=== PATIENT | female | born 2000 | race Caucasian/White ===

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

== ENCOUNTER 2018-07-21 19:00 | Emergency (ER) | END 2018-07-21 21:49 | disposition home or self-care (01) ==

== ENCOUNTER 2018-11-03 10:57 | Emergency (ER) | payer BC, OTHER ==
[~2018-11-03] VITALS: Wt 78.0 kg
[~2018-11-03 10:57] MED LIST changes: +ALBU18HF INHALATION; +ALBU2.5V3 NEB; -ALBU8.5H3 INH; +ALBU8.5H8 INH; +AMOX500C2 PO; +AZIT250T PO; -AZIT250T94 PO; +FLUT9.9S NASAL; -IPRA3AMP INH; -IPRA3AMP INHALATION; +IPRA3AMP29 INH; +IPRA3AMP29 INHALATION; +NAPR-688 PO; +PRED20TA PO; +PROM6.2515 PO
[2018-11-03 10:59] VITALS: BP 123/74; PULSE 77; RESP 18
[2018-11-03] MEDS ORDERED: DOXY100T20 PO (11:15)
[2018-11-03] MEDS ORDERED: ACET500C5 PO (11:15)
--- NOTE | 2018-11-03 11:18 | ERD ---
ER Documentation Chief Complaint Chief Complaint YAMILETH BIG TOES PAIN HPI 18-year-old female presents with pain in around the bilateral big toes for the last 3 days. Started in [place]. She [place] lot on the beach but denies any history of trauma. Right toe is worse in the left toe. There is been some clear liquid emanating from underneath the nail in the right big toenail. She denies fevers, range of motion, weakness, additional symptoms. Tetanus is not up-to-date. ROS All systems reviewed and are negative except as per history of present illness. Medications Home Meds Active Scripts Doxycycline Hyclate* (Doxycycline Hyclate*) 100 Mg Tablet.dr, 100 MG PO BID for 10 Days, TAB Prov:MELISA COOK MD 11/03/18 Acetaminophen* (Tylophen*) 500 Mg Capsule, 1 CAP PO Q6H PRN for PAIN AND OR ELEVATED TEMP, #20 CAP Prov:MELISA COOK MD 11/03/18 Promethazine Hcl* (Promethazine Hcl* Syrup) 6.25 Mg/5 Ml Syrup, 6.25 MG PO Q6H PRN for COUGH, #100 ML Prov:DAVID GARCÍA PA-C 09/03/18 Albuterol Sulfate* (Proair HFA*) 8.5 Gm Hfa.aer.ad, 2 PUFF INH Q4, #1 INHALER Prov:DAVID GARCÍA PA-C 09/03/18 Albuterol Sulfate* (Albuterol Sulfate* Neb) 0.083%-3 Ml Neb, 2.5 MG NEB Q4 PRN for SHORTNESS OF BREATH, #30 EA Prov:DAVID GARCÍA PA-C 09/03/18 Albuterol Sulfate* (Albuterol Sulfate* Neb) 0.083%-3 Ml Neb, 2.5 MG NEB Q4 PRN for SHORTNESS OF BREATH, #30 EA Prov:MELISA COOK MD 07/21/18 Azithromycin* (Zithromax*) 250 Mg Tablet, 250 MG PO .ZPACK DIRECTED, #6 TAB TAKE 500 MG (2 TABS) THE FIRST DAY THEN 250 MG (1 TAB) DAYS 2-5 Prov:MELISA COOK MD 07/21/18 Prednisone* (Prednisone*) 20 Mg Tab, 60 MG PO DAILY for 5 Days, TAB 60 mg by mouth for 2 days then 40 mg by mouth for 3 days. Prov:MELISA COOK MD 07/21/18 Prednisone* (Prednisone*) 20 Mg Tab, 40 MG PO DAILY for 4 Days, TAB Prov:PETER FLORES DO 12/03/17 Albuterol Sulfate* (Ventolin HFA*) 18 Gm Hfa.aer.ad, 2 PUFF INHALATION Q6H, #1 INHALER Prov:GEOFFREY PRAKASH PA-C 10/07/17 Fluticasone Propionate (Flonase Allergy Relief) 9.9 Ml [place].susp, 2 SPRAY NASAL DAILY, #1 BOTTLE TO EACH NOSTRIL Prov:GEOFFREY PRAKASH PA-C 10/07/17 Prednisone* (Prednisone*) 20 Mg Tab, 40 MG PO DAILY for 4 Days, TAB Prov:GEOFFREY PRAKASH PA-C 10/07/17 Azithromycin* (Zithromax*) 250 Mg Tablet, 250 MG PO .ZPACK DIRECTED, #6 TAB TAKE 500 MG (2 TABS) THE FIRST DAY THEN 250 MG (1 TAB) DAYS 2-5 Prov:GEOFFREY PRAKASH PA-C 10/07/17 Albuterol Sulfate* (Albuterol Sulfate* Neb) 0.083%-3 Ml Neb, 2.5 MG NEB Q4 PRN for SHORTNESS OF BREATH, #30 EA Prov:NILE HARGROVE PA-C 08/14/17 Albuterol Sulfate* (Ventolin HFA*) 18 Gm Hfa.aer.ad, 2 PUFF INHALATION Q4H, #1 INHALER Prov:NILE HARGROVE PA-C 08/14/17 Prednisone* (Prednisone*) 20 Mg Tab, 40 MG PO DAILY for 4 Days, TAB Prov:NILE HARGROVE PA-C 08/14/17 Naproxen* (Naproxen*) 500 Mg Tablet, 500 MG PO BID PRN for PAIN, #20 TAB Prov:PETER FLORES DO 07/22/17 Prednisone (Prednisone) 20 Mg Tablet, 40 MG PO DAILY, #4 TAB Prov:PETER FLORES DO 07/22/17 Amoxicillin* (Amoxicillin*) 500 Mg Cap, 500 MG PO TID for 7 Days, CAP Prov:PETER FLORES DO 07/22/17 Xgoxxjbcwsb-W-Ehrlpchvut Hb* (Guaifenesin* DM Syrup) 120 Ml Syrup, 10 ML PO Q4H PRN for COUGH, #120 ML Prov:ALISTAIR RIVERA NP 06/27/17 Prednisone* (Prednisone*) 50 Mg Tablet, 50 MG PO DAILY for 5 Days, TAB Prov:ALISTAIR RIVERA NP 06/27/17 Ipratropium-Albuterol (Ipratropium-Albuterol) 0.5-3 Mg/3 Ml Ampul.neb, 3 ML INH Q4H PRN for SHORTNESS OF BREATH, #30 AMP Prov:ALISTAIR RIVERA NP 06/27/17 Cetirizine Hcl* (Zyrtec*) 10 Mg Capsule, 10 MG PO DAILY, #30 TAB.CHEW Prov:ALISTAIR RIVERA NP 06/27/17 Albuterol Sulfate* (Proair HFA*) 8.5 Gm Hfa.aer.ad, 2 PUFF INH Q4H PRN for WHEEZING AND SOB, #1 INHALER Prov:ALISTAIR RIVERA NP 06/27/17 Salmeterol Xinaf/Fluticasone* (Advair*) 250-50 Diskus Inhaler, 1 INH INH BID, #1 INH Prov:CORBY CONNELLY 04/25/17 Prednisone* (Prednisone*) 10 Mg Tab, 10 MG PO DAILY, #30 TAB 1. take 40mg by mouth daily for 3 days 2. then 30mg by mouth daily for 3 days 3. then 20mg by mouth daily for 3 days 4. then 10mg by mouth daily for 3 days Prov:CORBY CONNELLY 04/25/17 Albuterol Sulfate* (Proair HFA*) 8.5 Gm Hfa.aer.ad, 2 PUFF INH Q4H PRN for WHEEZING AND SOB, #1 INHALER Prov:CORBY CONNELLY 04/25/17 Azithromycin* (Zithromax*) 250 Mg Tablet, 250 MG PO .ZPACK DIRECTED, #6 TAB TAKE 500 MG (2 TABS) THE FIRST DAY THEN 250 MG (1 TAB) DAYS 2-5 Prov:CORBY CONNELLY 04/25/17 Cetirizine Hcl* (Zyrtec*) 10 Mg Capsule, 10 MG PO DAILY, #20 TAB.CHEW Prov:ABEBA ALFONSO PA-C 04/22/17 Dextromethorphan Hb-Promethazine Hcl* (Promethazine DM* Syrup) 473 Ml Syrup, 5 ML PO Q6 PRN for COUGH, #1 BOTTLE Prov:ABEBA ALFONSO PA-C 04/22/17 Ipratropium-Albuterol (Ipratropium-Albuterol) 0.5-3 Mg/3 Ml Ampul.neb, 3 ML INHALATION Q6, #30 VIAL Prov:ALISTAIR RIVERA NP 10/14/15 Cetirizine Hcl* (Zyrtec*) 10 Mg Capsule, 10 MG PO DAILY, #30 TAB.CHEW Prov:ALISTAIR RIVERA NP 09/16/15 Albuterol Sulfate* (Proventil* Neb) 0.083% Neb, 2.5 MG NEB Q4 PRN for SHORTNESS OF BREATH, #30 EA Prov:SARWAT ABERNATHYA 02/22/15 Allergies Allergies: Coded Allergies: No Known Allergy (Unverified , 09/03/18) PMhx/Soc History of Surgery: No Anesthesia Reaction: No Hx Neurological Disorder: No Hx Respiratory Disorders: Yes (ASTHMA) Hx Cardiac Disorders: No Hx Psychiatric Problems: No Hx Miscellaneous Medical Probl: No Hx Alcohol Use: No Hx Substance Use: No Hx Tobacco Use: No FmHx Family History: No diabetes, No coronary disease, No other Physical Exam Vitals Vital Signs Date Temp Pulse Resp B/P (MAP) Pulse Ox O2 O2 Flow FiO2 Time Delivery Rate 11/03/18 99.2 77 18 123/74 99 10:59 (90) Physical Exam Const: No acute distress Head: Atraumatic Eyes: Normal Conjunctiva ENT: Normal External Ears, Nose and Mouth. Neck: Full range of motion. No meningismus. Resp: Clear to auscultation bilaterally Cardio: Regular rate and rhythm, no murmurs Abd: Soft, non tender, non distended. Normal bowel sounds Skin: No petechiae or rashes Back: No midline or flank tenderness Ext: No cyanosis, or edema. Serous discharge expressible from underneath the right big toenail. Slight surrounding irritation and redness. Left toenail with some slight surrounding irritation without induration, streaking. No discharge or fluctuance. No bony tenderness or deformities. Neur: Awake and alert Psych: Normal Mood and Affect Results 24 hrs Current Medications Medications Dose Sig/Juan Manuel Start Time Status Last (Trade) Ordered Route PRN Stop Time Admin Dose Reason Admin Diphtheria/ 0.5 ml ONCE ONCE 11/03/18 Tetanus/Acell IM* 11:30 11/03/18 Pertussis 11:31 (Adacel) Procedures/MDM Patient presents with signs and symptoms of likely mild bilateral big toenail partial avulsion possibly due to walking on sand or prolonged walking. She is given a tetanus booster. Will treat with warm soaks, Tylenol, doxycycline for redness, counseling that nails will fall off likely in the next 1-2 weeks and new nail will grow underneath. Doubt osteomyelitis, no evidence of tenosynovitis, significant cellulitis, abscess. No history to suggest fracture, traumatic bony injury. She is advised to return for worsening redness, fevers, new worsening symptoms otherwise further observation at home and return precautions. Departure Diagnosis: Primary Impression: Nail problem Condition: Stable Patient Instructions: Nail Avulsion, Partial Referrals: DOCTOR,NOT ON STAFF (PCP) Additional Instructions: Nail will likely fall off within the next 1-2 weeks. Recheck for worsening redness, fevers, new worsening symptoms. Recommend warm soaks at home. MELISA COOK MD Nov 03, 2018 11:18
[2018-11-03] MEDS ORDERED: DIPHTH/TET/ACEL PERTUSS (ADULT) 0.5 ML VIAL IM* ONE (11:30)
== END 2018-11-03 11:56 | disposition home or self-care (01) ==
LOC: FTE 10:57
DX: M79.674 Pain in right toe(s) (principal); M79.675 Pain in left toe(s); J45.909 Unspecified asthma, uncomplicated; Z23 Encounter for immunization
CPT/HCPCS: 90471; 90715

== ENCOUNTER 2019-03-25 18:56 | Emergency (ER) | payer BC, OTHER ==
[~2019-03-25] VITALS: Ht 160 cm; Wt 66.3 kg
[~2019-03-25 18:56] MED LIST changes: +ACET500C5 PO; +CEPH-443 PO; +DOXY100T20 PO; +GUAI120S25 PO; -GUAI120S26 PO; +IBUP-1542 PO; +SULF1TAB31 PO
[2019-03-25 19:10] VITALS: BP 128/71; PULSE 95; RESP 18; Ht 160 cm; Wt 66.3 kg
[2019-03-25] MEDS ORDERED: CEPHALEXIN 500 MG CAP PO ONE (20:00)
[2019-03-25] MEDS ORDERED: IBUPROFEN 600 MG TAB PO ONE (20:00)
[2019-03-25] MEDS ORDERED: TRIMETHOPRIM/SULFAMETHOX (DS) TAB PO ONE (20:00)
== END 2019-03-25 20:14 | disposition home or self-care (01) ==
LOC: FTE 18:56
DX: L02.01 Cutaneous abscess of face (principal); J45.909 Unspecified asthma, uncomplicated
CPT/HCPCS: 99283